=== PATIENT | male | born 1980 | race Two or more races ===

== ENCOUNTER 2024-05-03 09:50 | Emergency (ER) | payer BC, SELFPAY ==
[2024-05-03 09:51] VITALS: BMI 28.5
[2024-05-03 10:28] VITALS: BP 150/79; PULSE 88; RESP 16; TEMP 36.8; O2SAT 99; BMI 27.9
--- NOTE | 2024-05-03 11:10 | XR_ITS ---
Examination: Lumbar spine 3 views Technique one AP lateral coned lateral lower lumbar spine 3 views Exam date and time: May 03, 2024 11:40 AM INDICATIONS: Patient fell several days ago with injury to the lower back, lower back pain. FINDINGS: Adequate alignment lumbar vertebral bodies No lumbar fracture No significant lumbar disc narrowing No spondylolisthesis IMPRESSION: No lumbar fracture
--- NOTE | 2024-05-03 11:10 | XR_ITS ---
Examination: Shoulder,right, 3 views Technique: Shoulder AP internal rotation, AP external rotation, Y view shoulder, 3 views Exam date and time :May 03, 2024 1130 hours INDICATIONS: Right shoulder pain beginning 3 days ago after falling with injury to the shoulder FINDINGS: No shoulder fracture or dislocation No AC joint separation IMPRESSION: No shoulder fracture or dislocation
[2024-05-03] MEDS: IBUPROFEN TAB 400 MG TABLET 800 MG PO (11:34)
--- NOTE | 2024-05-03 12:47 | EDNOTE_ITS ---
ED Back Injury Pain RME/HPI General Chief Complaint: Back Pain/Injury Stated Complaint: BACK PAIN S/P HIT BY TREE X 3DAY Time Seen by Provider: 05/03/24 10:46 Source: patient Arrival date/time: 05/03/24 09:50 This is a 43-year-old male who presents to the emergency department after he fe ll from standing position. He does report he was pruning his tree when the tree branch knocked him over and landed on his buttocks. Reports that this incident happened this a.m. and since then he is having some lower back pain worsening with ambulation. Patient did not attempt any interventions or take any OTC medications prior to ED visit. Patient denies any other associated symptoms or aggravating factors. No modifying factors, no radiation, no migration. Mode of arrival: ambulatory Related Data Previous Rx's ?Medication ?Instructions ?Recorded ibuprofen 800 mg tablet (IBU) 800 mg PO Q8H #20 tabs 05/03/24 Allergies Allergy/AdvReac Type Severity Reaction Status Date / Time No Known Allergies Allergy Verified 05/03/24 09:52 Review of Systems Review of Systems Systems Reviewed: All systems reviewed, normal except as documented Narrative Review of Systems: Gen: No fever, no chills, no weight loss EYES: No discharge, no visual changes, no pain HEENT: No ear pain, no congestion, no sore throat PULM: No shortness of breath, no cough, no congestion CV: No chest pain, no dyspnea on exertion, no palpitations GI: No nausea, no vomiting, no diarrhea, no pain, no constipation : No frequency, no urgency,? no dysuria Musc/skel: No joint pain, + intermittent back pain Skin: No rash? Psyc: No hallucinations, no depression Heme/Lymph: No easy bleeding or bruising tendencies Neuro: No weakness, no headache ED Exam Narrative Physical exam: General: Sittiing in Exam table in no acute distress, answering questions appropriately HENT: normocephalic, atraumatic, EOMI, PERRLA, moist mucous membranes Chest: chest wall is nontender Cardiac: regular rate and rhythm, normal S1 and S2, no murmurs, rubs, or gallops, capillary refill ?2 seconds Pulmonary: clear to auscultation bilaterally, no wheezing, crackles, or rhonchi Abdominal: active bowel sounds, soft, nontender, nondistended Neuro: A&OX3, CN II-XII intact, sensation grossly intact bilaterally in UE and LE. Skin: no rashes, no ecchymosis Ext: no lower extremity edema, + paraspinal tenderness bilateral. No vertebral tenderness no step-offs. Course Quality Measures none Orders Category Date Time Status XR lumbar spine 2-3V Stat Exams 05/03/24 11:10 Completed XR shoulder RT min 2V Stat Exams 05/03/24 11:10 Completed Ibuprofen Tab [Motrin Tab] Med 05/03/24 11:10 Discontinued 800 mg PO X1 ONE Vital Signs Vital signs: Vital Signs Temperature 98.2 F 05/03/24 10:28 Pulse Rate 88 05/03/24 10:28 Respiratory Rate 16 05/03/24 10:28 Blood Pressure 150/79 H 05/03/24 10:28 Pulse Oximetry (%) 99 05/03/24 10:28 Oxygen Delivery Method Room Air 05/03/24 10:28 Back Pain / Injury MDM Narrative MDM Narrative:: Acute back pain status post fall. Patient is ambulatory vital signs are stable pain medication was given while in ED. X-rays obtained no fractures dislocations. Strictly advised to follow-up with his PCP for further evaluation. Strict ER precautions given to return if there is any worsening symptoms or change in condition. No fever, weakness, abdominal pain, saddle anesthesia, bowel/bladder incontinence noted. No hx of IVDA. Gait and sensation intact. No signs of emergent pathology at this time. Low suspicion for emergent etiology such as epidural abscess or spinal cord compression/cauda equina. Exam is consistent with musculoskeletal back pain. Patient data External records reviewed:: [facility] previous records Clinical information provided by:: patient Social determinants that could affect healthcare access:: none Patient has the following chronic illnesses:: none How is presenting disease/condition affected by chronic disease/condition?: no chronic disease Evaluation data The following diagnostics were reviewed and interpreted by me:: radiology exam(s) Lab and/or radiology exams considered but not ordered:: none Interpretation Summary: Examination: Lumbar spine 3 views Technique one AP lateral coned lateral lower lumbar spine 3 views Exam date and time: May 03, 2024 11:40 AM INDICATIONS: Patient fell several days ago with injury to the lower back, lower back pain. FINDINGS: Adequate alignment lumbar vertebral bodies No lumbar fracture No significant lumbar disc narrowing No spondylolisthesis IMPRESSION: No lumbar fracture Examination: Shoulder,right, 3 views Technique: Shoulder AP internal rotation, AP external rotation, Y view shoulder, 3 views Exam date and time :May 03, 2024 1130 hours INDICATIONS: Right shoulder pain beginning 3 days ago after falling with injury to the shoulder FINDINGS: No shoulder fracture or dislocation No AC joint separation IMPRESSION: No shoulder fracture or dislocation Medications / Prescriptions Medications or Prescriptions considered but not ordered:: none Medication administrations:: Medication Administration History Discontinued Medications Ibuprofen (Ibuprofen Tab 400 Mg Tablet) 800 mg PO X1 ONE Stop: 05/03/24 11:11 Last Admin: 05/03/24 11:34 Dose: 800 mg Documented By: DD all medications administered and effective Consultations Consultation(s) initiated? (list below): No Diagnosis Differential diagnosis back pain/injury: lumbar radiculopathy, sciatica, strain of lumbar region and other Most likely diagnosis given after review of the tests above:: Contusion of the right shoulder and fall Admission Indicated Admission indicated?: not indicated Explain why admission is indicated or not indicated:: none Admission Request Was there a request for admission?: No Disposition Plan Disposition Plan: Discharge Discharge Attestation Discharge Attestation: The patient and all family members were given an opportunity to ask questions and understood the discharge instructions. Discharge instructions specifically effects, indications for sooner follow up or return to the emergency department, and the expected course of current diagnosis. Patient condition: Stable Discharge Plan Plan Patient Disposition: HOME (Self Care) Patient condition on transfer: Stable Prescriptions/Referrals Prescriptions/Med Rec: New ibuprofen [IBU] 800 mg tablet 800 mg PO Q8H Qty: 20 0RF Referrals: Wilbert Rosa MD [Primary Care Provider] - In 1 week Problem List Clinical Impression: Strain of lumbar region, Fall, Contusion of right shoulder Patient/Caregiver Discharge Instructions Discharge Activity: activity as tolerated Education Materials: Bruises (Contusions), ED Back Pain (Acute or Chronic) Additional Instructions: -Romelia radiograf?as no muestran ninguna fractura aguda ni anomal?a. -Aumente sam hidrataci?n; puede basim Tylenol o ibuprofeno de venta paige para el dolor seg?n las indicaciones. -Descanse Reese un seguimiento con sam m?dico de cabecera para aleksandr evaluaci?n adicional en 48 horas. Regrese al departamento de emergencias si los s?ntomas empeoran o si sam condici?n camb[place]. -Your x-rays do not demonstrate any acute fractures or abnormalities. -Please increase hydration, can take [id number] Tylenol or ibuprofen for pain as directed. -Rest Please follow-up with your primary doctor for any further evaluation in 48 hours. Return to the emergency department this any worsening symptoms change in condition. Print Language: Slovak Stand Alone Forms: Luh Award Info., Patient Portal Info Letter PA/NUT ROASTER Supervising Physician PA/NUT ROASTER Supervising Physician: Dr León
== END 2024-05-03 13:54 | disposition home or self-care (01) ==
PROVIDERS: Emergency Provider Emergency Medicine; PCP Internal Medicine
DX: S39.012A Strain of muscle, fascia and tendon of lower back, initial encounter (principal); S40.011A Contusion of right shoulder, initial encounter; W19.XXXA Unspecified fall, initial encounter
CPT/HCPCS: 72100; 73030; 99283; A9270

== ENCOUNTER → 2024-07-26 | Outpatient (CLI) | payer BC, SELFPAY ==
[2024-07-26 11:21] LABS: Basophils % (Auto) 0 % (0-2.5); Eosinophils # (Auto) 0.1 Thou/mm3 (0.0-0.5); Eosinophils % (Auto) 1 % (0-10); Hematocrit 44.6 % (41.0-53.0); Hemoglobin 15.3 g/dL (13.5-16.0); Immature Granulocytes % (Auto) 0 % (0-0); Immature Granulocytes Auto 0.01 Thou/mm3 (0.00-0.00); Lymphocytes # (Auto) 2.3 Thou/mm3 (1.0-4.8); Lymphocytes % (Auto) 43 % (10-50); Mean Corpuscular HGB Conc 34.3 g/dl (31.0-37.0); Mean Corpuscular Hemoglobin 30.7 pg (25.0-35.0); Mean Corpuscular Volume 90 fL (80-100); Monocytes # (Auto) 0.5 Thou/mm3 (0.0-0.8); Monocytes % (Auto) 9 % (0-12); Neutrophils # (Auto) 2.5 Thou/mm3 (1.8-7.7); Neutrophils % (Auto) 46 % (37-80); Nucleated Red Blood Cell % 0 /100 WBC (0); Platelet Count 273 Thou/mm3 (140-440); RDW Standard Deviation 41.1 fL (35.1-43.9); Red Blood Count 4.98 Miln/mm3 (4.50-5.90); White Blood Count 5.3 Thou/mm3 (3.8-10.6)
[2024-07-26 11:31] LABS: Glucose Estimated Average 111 mg/dL (80-131); Hemoglobin A1C 5.5 % Hgb (4.8-6.0)
[2024-07-26 11:43] LABS: Vitamin D 25 Hydroxy Total 29.6 ng/mL (7.3-40.2)
[2024-07-26 11:44] LABS: Alanine Aminotransferase 25 U/L (10-49); Albumin, Serum 4.4 gm/dL (3.5-5.0); Albumin/Globulin Ratio 1.8 (1.2-2.2); Alkaline Phosphatase 71 U/L (46-116); Anion Gap 9 (7-16); Aspartate Amino Transferase 19 U/L (0-34); BUN/Creatinine Ratio 14 Ratio (12-20); Bilirubin,Total 0.5 mg/dL (0.3-1.2); Blood Urea Nitrogen 14 mg/dL (9-23); Calcium 9.4 mg/dL (8.3-10.6); Calcium (Corrected) 9.4 mg/dL (8.5-10.1); Carbon Dioxide 27.8 mMol/L (20.0-31.0); Cardiac Risk Estimate 4.2 RATIO (4.0-6.7); Chloride 104 mMol/L (98-107); Cholesterol 191 mg/dL (132-200); Free T4 (Free Thyroxine) 1.28 ng/dL (0.89-1.76); Globulin 2.5 gm/dL (2.3-3.5); Glucose 97 mg/dL (74-106); HDL Cholesterol 45 mg/dL (40-60); LDL Cholesterol,Calculated 114 mg/dL (0-130); Osmolality,Calculated 281 (275-295); Potassium 4.4 mMol/L (3.4-5.1); Sodium 141 mMol/L (136-145); Thyroid Stimulating Hormone 1.08 uIU/mL (0.55-4.78); Total Protein 6.9 gm/dL (5.7-8.2); Triglycerides 159 mg/dL (30-150); eGFR > 60 See Note
== END | disposition home or self-care (01) ==
LOC: COPL 10:14
PROVIDERS: PCP Internal Medicine; Referring Provider Internal Medicine; Visit Provider Internal Medicine
DX: Z00.00 Encounter for general adult medical examination without abnormal findings (principal)
CPT/HCPCS: 36415; 80053; 80061; 82306; 83036; 84439; 84443; 85025